=== PATIENT | female | born 1990 | race American Indian/Alaskan Native ===

== ENCOUNTER 2021-01-30 20:30 | Emergency (ER) | payer SELFPAY ==
--- NOTE | 2021-01-30 21:09 | Emergency Department Report ---
ED General Adult HPI - General Chief complaint: Abdominal Pain Stated complaint: DIARRHEA/ABD PAIN PUI?: Yes Time Seen by Provider: 01/30/21 21:06 Source: patient, RN notes reviewed Mode of arrival: Ambulatory Limitations: No Limitations - History of Present Illness Initial comments: The patient was evaluated in the emergency department for symptoms described in the history of present illness. He/she was evaluated in the context of the global COVID-19 pandemic, which necessitated consideration that the patient might be at risk for infection with the virus that causes COVID-19. Institutional protocols and algorithms that pertain to the evaluation of patients at risk for COVID-19 are in a state of rapid change based on i nformation released by regulatory bodies including the CDC and federal and state organizations. These policies and algorithms were followed during the patient's care in the emergency department. Please note that these policies, procedures and recommendations changed on a rapid basis. The patient is a 30-year-old female, who is not vaccinated against COVID-19, who presents to the ER on day 6 with typical Covid symptoms. The patient reports that she went to a green party last week, and this past Monday, approximately 6 days ago, began to have diarrhea, malaise, fatigue, weakness, dizziness, chest tightness. The patient is not sure if she is having a fever. The patient has not had loss of taste or smell. The patient endorses epigastric abdominal pain. The patient denies lower abdominal pain. The patient denies vomiting. The patient reports that anything she drinks "just goes right through me." The patient endorses fatigue and dizziness. The patient has not fallen. Patient reports she is not taken anything at home for her physical discomfort. The patient denies oral contraceptive use, travel, surgery, immobilization, and personal and family history of DVT and pulmonary embolism. -: Gradual, days(s) Location: chest, abdomen Radiation: non-radiation Quality: aching Consistency: constant Improves with: rest Worsens with: movement - Related Data Previous Rx's Medication Instructions Recorded Last Taken Type Acetaminophen [Non-Aspirin Extra 500 mg PO Q6HR PRN #30 tablet 01/30/21 Unknown Rx Strength] Albuterol Sulfate [Proair 90 mcg IH Q4HR PRN #2 aer.pow.ba 01/30/21 Unknown Rx Respiclick] Metoclopramide [Reglan] 10 mg PO QID PRN #30 tablet 01/30/21 Unknown Rx Allergies Allergy/AdvReac Type Severity Reaction Status Date / Time No Known Allergies Allergy Verified 01/30/21 21:47 ED Review of Systems ROS: Stated complaint: DIARRHEA/ABD PAIN Other details as noted in HPI Constitutional: malaise, weakness Eyes: denies: eye discharge ENT: congestion Respiratory: cough, shortness of breath Cardiovascular: chest pain Gastrointestinal: abdominal pain, diarrhea Musculoskeletal: myalgia Neurological: weakness Hematological/Lymphatic: denies: easy bleeding ED Past Medical Hx - Medications Home Medications: Home Medications Medication Instructions Recorded Confirmed Last Taken Type Acetaminophen [Non-Aspirin Extra 500 mg PO Q6HR PRN #30 tablet 01/30/21 Unknown Rx Strength] Albuterol Sulfate [Proair 90 mcg IH Q4HR PRN #2 aer.pow.ba 01/30/21 Unknown Rx Respiclick] Metoclopramide [Reglan] 10 mg PO QID PRN #30 tablet 01/30/21 Unknown Rx ED Physical Exam - General Limitations: No Limitations General appearance: alert, in no apparent distress - Head Head exam: Present: atraumatic, normocephalic - Eye Eye exam: Present: normal appearance, EOMI. Absent: nystagmus - ENT ENT exam: Present: normal exam, normal orophraynx, mucous membranes moist, normal external ear exam - Neck Neck exam: Present: normal inspection, full ROM. Absent: tenderness, meningismus - Respiratory Respiratory exam: Present: normal lung sounds bilaterally, chest wall tenderness. Absent: respiratory distress, wheezes, rales, rhonchi, stridor - Cardiovascular Cardiovascular Exam: Present: normal rhythm, tachycardia, normal heart sounds. Absent: bradycardia, irregular rhythm, systolic murmur, diastolic murmur, rubs, gallop - GI/Abdominal GI/Abdominal exam: Present: soft. Absent: distended, tenderness, guarding, rebound, rigid, pulsatile mass - Extremities Exam Extremities exam: Present: normal inspection, full ROM, other (2+ pulses noted in the bilateral upper and lower extremities. There is no palpable cord. negative Homans sign. Muscular compartments are soft. The pelvis is stable.). Absent: pedal edema, calf tenderness - Back Exam Back exam: Present: normal inspection. Absent: tenderness, CVA tenderness (R), CVA tenderness (L), paraspinal tenderness, vertebral tenderness - Neurological Exam Neurological exam: Present: alert, oriented X3, other (No facial droop. Tongue midline. Extraocular movements intact bilaterally. Facial sensation intact to light touch in V1, V2, V3 distribution bilaterally. 5 and a 5 strength in 4 extremities. Sensation intact to light touch in 4 extremities.). Absent: motor sensory deficit - Psychiatric Psychiatric exam: Present: anxious - Skin Skin exam: Present: warm, dry, intact, normal color. Absent: rash ED Course Vital Signs 01/30/21 01/31/21 23:16 00:39 Temperature 98.2 F Pulse Rate 85 Respiratory 12 Rate Blood Pressure 104/62 [Left] O2 Sat by Pulse 98 Oximetry - Reevaluation(s) Reevaluation #1: 01/30/21 22:52 Differential diagnosis, including but not limited to: COVID-19, dehydration, electrolyte derangement, pulmonary embolism, acute coronary syndrome, GERD, gastritis, hiatal hernia, pericarditis, myocarditis Assessment and plan: 30-year-old female who is not vaccinated against COVID-19, who recently attended a large social gathering last week, and shortly thereafter developed a number of constitutional symptoms, all suggestive of COVID-19. Patient low risk for major adverse cardiac event as per heart score. Presuming troponin and CK unremarkable, myopericarditis very unlikely. CAD very unlikely. She denies DVT and pulmonary embolism risk factors, she is low risk by Wells criteria for pulmonary embolism, and a D-dimer is negative. She walks with a steady gait, and on reevaluation's, appears to be quite engaged with her cellular phone, texting and typing on her cell phone, and does not appear to be in any acute distress. Patient counseled that she is likely experiencing the natural history of COVID- 19. Patient counseled to isolate, quarantine, wash hands with soap and water frequently, thoroughly and often, drink copious fluids, advance diet as tolerated, and obtain outpatient COVID-19 test (this hospital does not have rapid or [id number] Covid testing), and to consider outpatient COVID-19 vaccination when she has convalesced. Currently awaiting ambulatory test, and remainder of laboratory studies. 01/31/21 00:53 Patient afebrile. Patient does not desaturate with trial of ambulation. X-ray suggestive of viral pneumonitis. Patient resting comfortably on chair, playing on cellular phone, and not in any acute distress. ED Medical Decision Making - Lab Data Result diagrams: 01/30/21 22:07 01/30/21 22:07 Lab Results 01/30/21 01/30/21 Range/Units 22:07 22:07 WBC 3.8 L (4.5-11.0) K/mm3 RBC 3.78 (3.65-5.03) M/mm3 Hgb 12.1 (10.1-14.3) gm/dl Hct 34.6 (30.3-42.9) % MCV 92 (79-97) fl MCH 32 (28-32) pg MCHC 35 H (30-34) % RDW 12.9 L (13.2-15.2) % Plt Count 236 (140-440) K/mm3 Lymph % (Auto) 38.1 H (13.4-35.0) % [place] % (Auto) 7.2 (0.0-7.3) % Eos % (Auto) 0.1 (0.0-4.3) % Baso % (Auto) 0.4 (0.0-1.8) % Lymph # (Auto) 1.5 (1.2-5.4) K/mm3 [place] # (Auto) 0.3 (0.0-0.8) K/mm3 Eos # (Auto) 0.0 (0.0-0.4) K/mm3 Baso # (Auto) 0.0 (0.0-0.1) K/mm3 Seg Neutrophils % 54.2 (40.0-70.0) % Seg Neutrophils # 2.1 (1.8-7.7) K/mm3 PT 14.2 (12.2-14.9) Sec. INR 1.04 (0.87-1.13) D-Dimer 181.22 (0-234) ng/mlDDU - EKG Data -: EKG Interpreted by Id EKG shows normal: sinus rhythm Rate: tachycardia - EKG Data When compared to previous EKG there are: previous EKG unavailable 01/30/21 22:52 The EKG is interpreted at 21: 42 Sinus rhythm, tachycardia, rate 101 bpm. Normal axis, normal P wave axis, QTC 4 3 1 ms. Borderline atrial enlargement, abnormal EKG. No STEMI. There is no prior for comparison. - Radiology Data Radiology results: pending, report reviewed, image reviewed CHEST 2 VIEWS INDICATION / CLINICAL INFORMATION: cp weak covid symptoms STUDY TIME: 29 COMPARISON: None available. FINDINGS: SUPPORT DEVICES: None. HEART / MEDIASTINUM: No significant abnormality. LUNGS / PLEURA: Moderate patchy bilateral areas of pneumonitis are seen in the mid lower lung borja, worse in the right base. Minimal left pleural effusion is seen. No pneumothorax. ADDITIONAL FINDINGS: No significant additional findings. Signer Name: Adam Martinez MD Signed: 01/30/2021 11:41 PM Workstation Name: [id number] Critical care attestation.: If time is entered above; I have spent that time in minutes in the direct care of this critically ill patient, excluding procedure time. ED Disposition Clinical Impression: Suspected COVID-19 virus infection, COVID-19 vaccination not done Disposition: HOME / SELF CARE / HOMELESS Is pt being admited?: No Does the pt Need Aspirin: No Condition: Good Instructions: COVID-19, Abdominal Pain (ED) Additional Instructions: As we discussed, the patient most likely has novel coronavirus/COVID. the symptoms of COVID will typically persist 10 to 14 days. There is no cure at this time for COVID. Please make certain to self isolate and self quarantine, follow-up with an outpatient primary care doctor within the next 3 to 5 days, wash hands with soap and water frequently, thoroughly and often, patient may take the prescribed medications as needed and directed. Advance diet and drink plenty of fluids as tolerated. Avoid interactions with the very elderly, very young, and those with chronic medical conditions. Return to the emergency room right away with new pain, worsening pain, migration of pain, projectile vomiting, change in mental status, confusion, inability to tolerate liquid feeds, new, worsened or different symptoms not present on the initial emergency room evaluation. We also recommend that the patient consume foods that are high in potassium, such as avocado, bananas, or potatoes. Please have a primary care doctor contact the medical records department to obtain copies of laboratory studies, radiology studies and follow-up Prescriptions: Acetaminophen [Non-Aspirin Extra Strength] 500 mg PO Q6HR PRN #30 tablet PRN Reason: Pain , Severe (7-10) Albuterol Sulfate [Proair Respiclick] 90 mcg IH Q4HR PRN #2 aer.pow.ba PRN Reason: Wheezing Metoclopramide [Reglan] 10 mg PO QID PRN #30 tablet PRN Reason: Nausea Referrals: YONNY COHN MD [Staff Physician] - 3-5 Days [facility] [Provider Group] - 3-5 Days Forms: Work/School Release Form(ED)
[2021-01-30] MEDS ORDERED: LACTATED RINGERS 1,000 ML IV ONE (21:30)
[2021-01-30] MEDS ORDERED: ACETAMINOPHEN 500 MG TAB PO NR (21:30)
[2021-01-30 22:17] LABS: Basophils % (Auto) 0.4 % (0.0-1.8); Eosinophils % (Auto) 0.1 % (0.0-4.3); Hematocrit 34.6 % (30.3-42.9); Hemoglobin 12.1 gm/dl (10.1-14.3); Lymphocytes # (Auto) 1.5 K/mm3 (1.2-5.4); Lymphocytes % (Auto) 38.1 % (13.4-35.0); Mean Corpuscular HGB Conc 35 % (30-34); Mean Corpuscular Volume 92 fl (79-97); Monocytes # (Auto) 0.3 K/mm3 (0.0-0.8); Monocytes % (Auto) 7.2 % (0.0-7.3); Platelet Count 236 K/mm3 (140-440); Red Blood Count 3.78 M/mm3 (3.65-5.03); Red Cell Distribution Width 12.9 % (13.2-15.2)
[2021-01-30 22:36] LABS: INR 1.04 (0.87-1.13)
[2021-01-30 23:00] LABS: Alanine Aminotransferase 28 units/L (7-56); Albumin 4.7 g/dL (3.9-5); Blood Urea Nitrogen 7 mg/dL (7-17); Calcium 9.1 mg/dL (8.4-10.2); Hemolysis Index 5
[2021-01-30 23:06] LABS: BUN/Creatinine Ratio 10
[2021-01-30] MEDS ORDERED: POTASSIUM CHLORIDE ER 20 MEQ TAB PO ONE (23:13)
--- NOTE | 2021-01-31 00:45 | XRay Report ---
CHEST 2 VIEWS INDICATION / CLINICAL INFORMATION: cp weak covid symptoms STUDY TIME: 29 COMPARISON: None available. FINDINGS: SUPPORT DEVICES: None. HEART / MEDIASTINUM: No significant abnormality. LUNGS / PLEURA: Moderate patchy bilateral areas of pneumonitis are seen in the mid lower lung borja, worse in the right base. Minimal left pleural effusion is seen. No pneumothorax. ADDITIONAL FINDINGS: No significant additional findings. Signer Name: Adam Martinez MD Signed: 01/31/2021 12:41 AM Workstation Name: [id number]
[2021-01-31 01:20] VITALS: BP 102/69
--- NOTE | 2021-02-01 10:40 | Electrocardiograph Report ---
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
== END 2021-01-31 01:20 | disposition home or self-care (01) ==
LOC: ED 20:30
DX: R50.9 Fever, unspecified (principal); Z20.822 Contact with and (suspected) exposure to COVID-19; R79.1 Abnormal coagulation profile; Z79.899 Other long term (current) drug therapy
CPT/HCPCS: 36415; 71046; 80053; 82550; 83735; 84484; 84702; 85025; 85379; 85610; 93005; 96360; 99284; J7120

== ENCOUNTER 2021-05-12 22:03 | Emergency (ER) | payer SELFPAY ==
[2021-05-12 22:07] VITALS: BP 117/76
[2021-05-12 23:05] LABS: Basophils % (Auto) 0.4 % (0.0-1.8); Eosinophils # (Auto) 0.2 K/mm3 (0.0-0.4); Eosinophils % (Auto) 1.6 % (0.0-4.3); Hemoglobin 12.2 gm/dl (10.1-14.3); Lymphocytes # (Auto) 3.1 K/mm3 (1.2-5.4); Lymphocytes % (Auto) 28.2 % (13.4-35.0); Mean Corpuscular HGB Conc 33 % (30-34); Mean Corpuscular Volume 92 fl (79-97); Monocytes # (Auto) 0.5 K/mm3 (0.0-0.8); Platelet Count 408 K/mm3 (140-440); Red Blood Count 4.02 M/mm3 (3.65-5.03); Red Cell Distribution Width 13.1 % (13.2-15.2)
[2021-05-12 23:20] LABS: Bacteria,Urine 1+ /HPF (Negative); Bilirubin,Urine NEG (Negative); Blood,Urine NEG (Negative); Color,Urine Straw (Yellow); Mucus,Urine FEW /HPF; Protein,Urine <15 mg/dL mg/dL (Negative); Urobilinogen,Urine < 2.0 mg/dL (<2.0)
[2021-05-12 23:25] LABS: Alanine Aminotransferase 17 units/L (7-56); Albumin 4.6 g/dL (3.9-5); Blood Urea Nitrogen 12 mg/dL (7-17); Calcium 9.5 mg/dL (8.4-10.2); Hemolysis Index 2
[2021-05-12 23:38] LABS: BUN/Creatinine Ratio 20
[2021-05-13] MEDS ORDERED: FAMOTIDINE 20 MG TAB PO ONE (02:03)
--- NOTE | 2021-05-13 02:03 | Emergency Department Report ---
HPI - General Chief Complaint: Abdominal Pain Time Seen by Provider: 05/13/21 01:29 - HPI HPI: 30-year-old -[place] female presents to the emergency department with a complaint of abdominal pain, worst in the epigastrium and upper quadrants. This has been going on for the past 2 to 3 weeks, since just before . At that time the patient was having some dark stools and was seen by a physician and told that she needs to follow-up outpatient with GI. The patient admits that she has not yet seen GI for the symptoms, but the dark stool has resolved. She continues to have intermittent abdominal pain that worsens after eating. Patient did have a recent positive home test as she missed her last menstrual cycle. With this she is G4, P1 with 2 previous miscarriages. She has not taken anything for symptoms prior to presentation today. She denies any pelvic pain or cramping, vaginal bleeding, dysuria, nausea or vomiting, diarrhea, constipation. No recent travel or sick contacts at home. ED Past Medical Hx - Past Medical History Previous Medical History?: No - Surgical History Past Surgical History?: No - Medications Home Medications: Home Medications Medication Instructions Recorded Confirmed Last Taken Type Acetaminophen [Non-Aspirin Extra 500 mg PO Q6HR PRN #30 tablet 01/30/21 Unknown Rx Strength] Albuterol Sulfate [Proair 90 mcg IH Q4HR PRN #2 aer.pow.ba 01/30/21 Unknown Rx Respiclick] Metoclopramide [Reglan] 10 mg PO QID PRN #30 tablet 01/30/21 Unknown Rx Famotidine [Pepcid] 20 mg PO BID #20 tablet 05/13/21 Unknown Rx Vit-Fe Fumar-FA [ 1 tab PO QDAY #30 tablet 05/13/21 Unknown Rx Vitamin] ED Review of Systems ROS: Stated complaint: ABDOMINAL PAIN Other details as noted in HPI Comment: All other systems reviewed and negative Constitutional: denies: chills, fever Eyes: denies: eye pain, vision change ENT: denies: ear pain, throat pain Respiratory: denies: cough, shortness of breath Cardiovascular: denies: chest pain, palpitations Gastrointestinal: abdominal pain. denies: vomiting Genitourinary: denies: dysuria, discharge Musculoskeletal: denies: back pain, arthralgia Skin: denies: rash, lesions Neurological: denies: headache, weakness Physical Exam - Physical Exam Vital Signs: Vital Signs 05/12/21 22:06 Temperature 98.0 F Pulse Rate 95 H Respiratory 18 Rate Blood Pressure 117/76 O2 Sat by Pulse 100 Oximetry Physical Exam: GENERAL: The patient is well-developed well-nourished. HENT: Normocephalic. Atraumatic. Patient has moist mucous membranes. EYES: Extraocular motions are intact. NECK: Supple. Trachea is midline. CHEST/LUNGS: Clear to auscultation. There is no respiratory distress noted. HEART/CARDIOVASCULAR: Regular. There is no tachycardia. There is no murmur. ABDOMEN: Abdomen is soft. There is some epigastric abdominal tenderness to palpation. No guarding. Patient has normal bowel sounds. There is no abdominal distention. SKIN: Skin is warm and dry. NEURO: The patient is awake, alert, and oriented. The patient is cooperative. Normal speech. MUSCULOSKELETAL: There is no tenderness or deformity. There is no limitation range of motion. ED Course Vital Signs 05/12/21 22:06 Temperature 98.0 F Pulse Rate 95 H Respiratory 18 Rate Blood Pressure 117/76 O2 Sat by Pulse 100 Oximetry ED Medical Decision Making - Lab Data Result diagrams: 05/12/21 22:32 05/12/21 22:32 Lab Results 05/12/21 05/12/21 05/12/21 Range/Units 22:32 22:32 22:32 WBC 10.9 (4.5-11.0) K/mm3 RBC 4.02 (3.65-5.03) M/mm3 Hgb 12.2 (10.1-14.3) gm/dl Hct 37.0 (30.3-42.9) % MCV 92 (79-97) fl MCH 30 (28-32) pg MCHC 33 (30-34) % RDW 13.1 L (13.2-15.2) % Plt Count 408 (140-440) K/mm3 Lymph % (Auto) 28.2 (13.4-35.0) % [place] % (Auto) 5.0 (0.0-7.3) % Eos % (Auto) 1.6 (0.0-4.3) % Baso % (Auto) 0.4 (0.0-1.8) % Lymph # (Auto) 3.1 (1.2-5.4) K/mm3 [place] # (Auto) 0.5 (0.0-0.8) K/mm3 Eos # (Auto) 0.2 (0.0-0.4) K/mm3 Baso # (Auto) 0.0 (0.0-0.1) K/mm3 Seg Neutrophils % 64.8 (40.0-70.0) % Seg Neutrophils # 7.0 (1.8-7.7) K/mm3 Sodium 140 (137-145) mmol/L Potassium 4.2 (3.6-5.0) mmol/L Chloride 103.4 (98-107) mmol/L Carbon Dioxide 25 (22-30) mmol/L Anion Gap 16 mmol/L BUN 12 (7-17) mg/dL Creatinine 0.6 (0.6-1.2) mg/dL Estimated GFR > 60 ml/min BUN/Creatinine Ratio 20 % Glucose 92 (65-100) mg/dL Calcium 9.5 (8.4-10.2) mg/dL Total Bilirubin 0.60 (0.1-1.2) mg/dL AST 18 (5-40) units/L ALT 17 (7-56) units/L Alkaline Phosphatase 46 (35-129) units/L Total Protein 7.3 (6.3-8.2) g/dL Albumin 4.6 (3.9-5) g/dL Albumin/Globulin Ratio 1.7 % Lipase (13-60) units/L HCG, Qual Positive (Negative) HCG, Quant (0-4) mIU/mL Urine Color (Yellow) Urine Turbidity (Clear) Urine pH (5.0-7.0) Ur Specific [place] (1.003-1.030) Urine Protein (Negative) mg/dL Urine Glucose (UA) (Negative) mg/dL Urine Ketones (Negative) mg/dL Urine Blood (Negative) Urine Nitrite (Negative) Urine Bilirubin (Negative) Urine Urobilinogen (<2.0) mg/dL Ur Leukocyte Esterase (Negative) Urine WBC (Auto) (0.0-6.0) /HPF Urine RBC (Auto) (0.0-6.0) /HPF U Epithel Cells (Auto) (0-13.0) /HPF Urine Bacteria (Auto) (Negative) /HPF Urine Mucus /HPF 01/05/22 01/06/22 01/06/22 Range/Units Unknown 01:30 Unknown WBC (4.5-11.0) K/mm3 RBC (3.65-5.03) M/mm3 Hgb (10.1-14.3) gm/dl Hct (30.3-42.9) % MCV (79-97) fl MCH (28-32) pg MCHC (30-34) % RDW (13.2-15.2) % Plt Count (140-440) K/mm3 Lymph % (Auto) (13.4-35.0) % [place] % (Auto) (0.0-7.3) % Eos % (Auto) (0.0-4.3) % Baso % (Auto) (0.0-1.8) % Lymph # (Auto) (1.2-5.4) K/mm3 [place] # (Auto) (0.0-0.8) K/mm3 Eos # (Auto) (0.0-0.4) K/mm3 Baso # (Auto) (0.0-0.1) K/mm3 Seg Neutrophils % (40.0-70.0) % Seg Neutrophils # (1.8-7.7) K/mm3 Sodium (137-145) mmol/L Potassium (3.6-5.0) mmol/L Chloride (98-107) mmol/L Carbon Dioxide (22-30) mmol/L Anion Gap mmol/L BUN (7-17) mg/dL Creatinine (0.6-1.2) mg/dL Estimated GFR ml/min BUN/Creatinine Ratio % Glucose (65-100) mg/dL Calcium (8.4-10.2) mg/dL Total Bilirubin (0.1-1.2) mg/dL AST (5-40) units/L ALT (7-56) units/L Alkaline Phosphatase (35-129) units/L Total Protein (6.3-8.2) g/dL Albumin (3.9-5) g/dL Albumin/Globulin Ratio % Lipase 40 (13-60) units/L HCG, Qual (Negative) HCG, Quant 61421 H (0-4) mIU/mL Urine Color Straw (Yellow) Urine Turbidity Clear (Clear) Urine pH 6.0 (5.0-7.0) Ur Specific [place] 1.010 (1.003-1.030) Urine Protein <15 mg/dl (Negative) mg/dL Urine Glucose (UA) Neg (Negative) mg/dL Urine Ketones Neg (Negative) mg/dL Urine Blood Neg (Negative) Urine Nitrite Neg (Negative) Urine Bilirubin Neg (Negative) Urine Urobilinogen < 2.0 (<2.0) mg/dL Ur Leukocyte Esterase Neg (Negative) Urine WBC (Auto) 1.0 (0.0-6.0) /HPF Urine RBC (Auto) 1.0 (0.0-6.0) /HPF U Epithel Cells (Auto) 2.0 (0-13.0) /HPF Urine Bacteria (Auto) 1+ (Negative) /HPF Urine Mucus Few /HPF - Radiology Data Radiology results: report reviewed ULTRASOUND OBSTETRIC INDICATION / CLINICAL INFORMATION: , abd pain. Clinical Gestational Age (GA) in weeks, days: Approximately 7 weeks TECHNIQUE: Transabdominal. Transvaginal COMPARISON: None available. FINDINGS: GESTATIONAL SAC: Well-defined oval shape and intrauterine in location. YOLK SAC: No significant abnormality. EMBRYO/FETUS: No significant abnormality. - Garibaldi-Rump Length = 0.42 cm = 6 weeks, 1 days - Heart Rate, beats per minute (if present) = 144 ADNEXA: The right ovary is well-visualized and has normal appearance. Normal Doppler flow noted within the right ovary. Left ovary contains a 7 mm corpus luteal cyst. Normal Doppler flow noted within the left ovary. FREE FLUID: None. ADDITIONAL FINDINGS: None. IMPRESSION: 1. Single, living intrauterine with estimated sonographic age of 6 weeks, 2 days. - Medical Decision Making This patient presents to the emergency department with a complaint of a few weeks of abdominal pain that appears to be mostly in the upper quadrants and worsens after eating. Patient also recently found out that she was from a home test. However she denies any pelvic pain, vaginal bleeding. On examination there is some reproducible epigastric or upper abdominal tenderness to palpation but no guarding. The abdomen is soft, nondistended and nontoxic in appearance. Patient's labs are mostly unremarkable including CBC, metabolic panel, lipase and urinalysis. The patient is with a beta-hCG of about 21,000. She had a pelvic ultrasound that shows a live intrauterine at about 6 weeks. As the patient is , we are slightly more limited in our ability to evaluate the abdominal discomfort. She does not have any right lower quadrant abdominal pain concerning for appendicitis. She does not have any significant right upper quadrant abdominal pain concerning for cholecystitis. And the way that she describes the pain, and the location of the pain, sounds more c onsistent with GERD and/or gastritis. Patient was given a dose of Pepcid here. Vital signs reassuring throughout her ED course including being afebrile. She will be discharged home to follow-up with primary care, gastroenterology and ELECTRICAL HARDWARE ENGINEER. She has been given a prescription for Pepcid. We discussed certain foods to avoid. She will return to the emergency department with any worsening of her symptoms or with any acute distress. Critical Care Time: No Critical care attestation.: If time is entered above; I have spent that time in minutes in the direct care of this critically ill patient, excluding procedure time. ED Disposition Clinical Impression: Qualifiers: Weeks of gestation: less than 8 weeks Qualified Code(s): Z3A.01 - Less than 8 weeks gestation of Abdominal pain Qualifiers: Abdominal location: unspecified location Qualified Code(s): R10.9 - Unspecified abdominal pain Gastritis Qualifiers: Gastritis type: unspecified gastritis Chronicity: unspecified Gastritis bleeding: without bleeding Qualified Code(s): K29.70 - Gastritis, unspecified, without bleeding Disposition: 01 HOME / SELF CARE / HOMELESS Is pt being admited?: No Condition: Stable Instructions: Abdominal Pain, Adult, Gastritis, Adult, First Trimester of , Abdominal Pain (ED) Additional Instructions: Please follow-up with a primary care physician in the next few days. I have given you a referral for a local primary care physician, Dr. Clements, and a primary care clinic, [facility]. Please follow-up with an ELECTRICAL HARDWARE ENGINEER for care in regards to your . Please try to avoid any alcohol, spicy foods, acidic foods, excessive caffeine. Do not eat and then immediately lay down or eat while laying down. Return to the emergency department with any worsening of your symptoms, new or concerning symptoms not addressed during this current emergency department visit, or with any acute distress. Prescriptions: Famotidine [Pepcid] 20 mg PO BID #20 tablet Vit-Fe Fumar-FA [ Vitamin] 1 tab PO QDAY #30 tablet Referrals: YONNY CLEMENTS MD [Staff Physician] - 3-5 Days [facility] [Provider Group] - 3-5 Days Time of Disposition: 03:37
--- NOTE | 2021-05-13 03:05 | Ultrasound Report ---
ULTRASOUND OBSTETRIC INDICATION / CLINICAL INFORMATION: , abd pain. Clinical Gestational Age (GA) in weeks, days: Approximately 7 weeks TECHNIQUE: Transabdominal. Transvaginal COMPARISON: None available. FINDINGS: GESTATIONAL SAC: Well-defined oval shape and intrauterine in location. YOLK SAC: No significant abnormality. EMBRYO/FETUS: No significant abnormality. - Mylo-Rump Length = 0.42 cm = 6 weeks, 1 days - Heart Rate, beats per minute (if present) = 144 ADNEXA: The right ovary is well-visualized and has normal appearance. Normal Doppler flow noted withi n the right ovary. Left ovary contains a 7 mm corpus luteal cyst. Normal Doppler flow noted within th e left ovary. FREE FLUID: None. ADDITIONAL FINDINGS: None. IMPRESSION: 1. Single, living intrauterine with estimated sonographic age of 6 weeks, 2 days. Signer Name: Teena Chiang MD Signed: 05/13/2021 3:01 AM Workstation Name: [id number]
--- NOTE | 2021-05-13 03:05 | Ultrasound Report ---
ULTRASOUND OBSTETRIC INDICATION / CLINICAL INFORMATION: , abd pain. Clinical Gestational Age (GA) in weeks, days: Approximately 7 weeks TECHNIQUE: Transabdominal. Transvaginal COMPARISON: None available. FINDINGS: GESTATIONAL SAC: Well-defined oval shape and intrauterine in location. YOLK SAC: No significant abnormality. EMBRYO/FETUS: No significant abnormality. - [place] Length = 0.42 cm = 6 weeks, 1 days - Heart Rate, beats per minute (if present) = 144 ADNEXA: The right ovary is well-visualized and has normal appearance. Normal Doppler flow noted withi n the right ovary. Left ovary contains a 7 mm corpus luteal cyst. Normal Doppler flow noted within th e left ovary. FREE FLUID: None. ADDITIONAL FINDINGS: None. IMPRESSION: 1. Single, living intrauterine with estimated sonographic age of 6 weeks, 2 days. Signer Name: Teena Chiang MD Signed: 05/13/2021 3:01 AM Workstation Name: [id number]
== END 2021-05-13 04:01 | disposition home or self-care (01) ==
LOC: ED 22:03
DX: O99.611 Diseases of the digestive system complicating pregnancy, first trimester (principal); K29.70 Gastritis, unspecified, without bleeding; Z3A.08 8 weeks gestation of pregnancy
CPT/HCPCS: 36415; 76801; 76817; 80053; 81001; 83690; 84702; 84703; 85025; 99284

== ENCOUNTER 2021-07-18 23:15 | Emergency (ER) | payer SELFPAY ==
[2021-07-18 23:44] VITALS: BP 126/66
[2021-07-19 00:56] LABS: Bilirubin,Urine NEG (Negative); Blood,Urine NEG (Negative); Color,Urine Colorless (Yellow); Mucus,Urine FEW /HPF; Protein,Urine <15 mg/dL mg/dL (Negative); RBC,Urine < 1.0 /HPF (0.0-6.0); Urobilinogen,Urine < 2.0 mg/dL (<2.0)
[2021-07-19 01:05] LABS: WBC,Urine < 1.0 /HPF (0.0-6.0)
[2021-07-19 01:22] LABS: Mean Corpuscular HGB Conc 33 % (30-34); Mean Corpuscular Volume 94 fl (79-97); Platelet Count 342 K/mm3 (140-440); Red Blood Count 3.83 M/mm3 (3.65-5.03); Red Cell Distribution Width 13.7 % (13.2-15.2)
--- NOTE | 2021-07-19 01:24 | Ultrasound Report ---
ULTRASOUND OBSTETRIC COMPLETE INDICATION / CLINICAL INFORMATION: Leaking amniotic fluid, pain. Clinical Gestational Age (GA) in weeks.days: 15, 3 TECHNIQUE: Transabdominal. COMPARISON: None available. FINDINGS: NUMBER: Single PRESENTATION: cephalic PLACENTA: Fundal and free of the os. MATERNAL ADNEXA: No significant abnormality. AMNIOTIC FLUID VOLUME: normal ANATOMY: Not performed. MEASUREMENTS: - Biparietal Diameter = 3.1 cm = 15.5 weeks.days - Head Circumference = 11.2 cm = 15.3 weeks.days - Abdominal Circumference = 9.9 cm = 15.6 weeks.days - Femur Length = 1.9 cm = 15.4 weeks.days - Estimated Weight (in grams, if calculated): Not calculated. - Heart Rate (beats per minute): 151 ADDITIONAL FINDINGS: Cervix closed measuring 4.3 cm. AVERAGE ULTRASOUND AGE (AUA) in weeks.days = 15.5 IMPRESSION: 1. Single intrauterine with AUA of 15.5 weeks.days 2. Cervix closed with normal-appearing amniotic fluid. Signer Name: Nick Crespo MD Signed: 07/19/2021 1:19 AM Workstation Name: [id number]
[2021-07-19 02:04] LABS: Basophils % (Auto) 0.3 % (0.0-1.8); Eosinophils # (Auto) 0.1 K/mm3 (0.0-0.4); Eosinophils % (Auto) 1.2 % (0.0-4.3); Lymphocytes # (Auto) 2.5 K/mm3 (1.2-5.4); Lymphocytes % (Auto) 24.1 % (13.4-35.0); Monocytes # (Auto) 0.5 K/mm3 (0.0-0.8); Monocytes % (Auto) 4.7 % (0.0-7.3)
[2021-07-19 02:10] LABS: Alanine Aminotransferase 11 units/L (7-56); Albumin 3.9 g/dL (3.9-5); Blood Urea Nitrogen 6 mg/dL (7-17); Calcium 8.8 mg/dL (8.4-10.2); Hemolysis Index 13
[2021-07-19 02:12] LABS: BUN/Creatinine Ratio 12
--- NOTE | 2021-07-19 03:13 | Emergency Department Report ---
ED Female HPI - General Chief complaint: OB/Uterine Contractions Stated complaint: -NEED ULTRASOUND Source: patient Mode of arrival: Ambulatory Limitations: No Limitations - History of Present Illness Initial comments: Patient is a A2 31-year-old -I[place] female who is approximately 15 weeks gestation presents to the ED with complaint of vaginal discharge that she describes as the persistently for about 12 hours, and suspects that she may have a leaking amniotic fluid. Patient states that she contacted her [facility]NALYST physician who advised her to come to the ED for evaluation. Patient denies abdominal pain, vaginal bleeding, dysuria, urinary frequency and urgency, chest pain, shortness of breath, fever, chills, cough, sore throat, chest pain or shortness of breath, low back pain or diarrhea. MD Complaint: vaginal discharge (suspect her amniotic fluid is leaking), other (Patient is 15 weeks gestation) -: Sudden, hour(s) (12) Radiation: non-radiating Severity scale (0 -10): 0 Quality: dull Improves with: none Worsens with: none Are you Now?: Yes (15 weeks gestation) Associated Symptoms: denies other symptoms, other (Suspected amniotic fluid leak). denies: vaginal discharge, vaginal bleeding, abdominal pain, nausea/vomiting, fever/chills, headaches, loss of appetite, dysuria, hematuria, rash, seizure, shortness of breath, syncope, weakness - Related Data Sexually active: Yes : 4 Para: 1 A: 2 Previous Rx's Medication Instructions Recorded Last Taken Type Acetaminophen [Non-Aspirin Extra 500 mg PO Q6HR PRN #30 tablet 01/30/21 Unknown Rx Strength] Albuterol Sulfate [Proair 90 mcg IH Q4HR PRN #2 aer.pow.ba 01/30/21 Unknown Rx Respiclick] Metoclopramide [Reglan] 10 mg PO QID PRN #30 tablet 01/30/21 Unknown Rx Famotidine [Pepcid] 20 mg PO BID #20 tablet 05/13/21 Unknown Rx Vit-Fe Fumar-FA [ 1 tab PO QDAY #30 tablet 05/13/21 Unknown Rx Vitamin] Allergies Allergy/AdvReac Type Severity Reaction Status Date / Time No Known Allergies Allergy Verified 01/30/21 21:47 ED Review of Systems ROS: Stated complaint: -NEED ULTRASOUND Other details as noted in HPI Constitutional: denies: chills, fever Eyes: denies: eye pain, eye discharge, vision change ENT: denies: ear pain, throat pain Respiratory: denies: cough, shortness of breath, wheezing Cardiovascular: denies: chest pain, palpitations Endocrine: no symptoms reported Gastrointestinal: denies: abdominal pain, nausea, vomiting, diarrhea Genitourinary: denies: urgency, dysuria, discharge Musculoskeletal: denies: back pain, joint swelling, arthralgia Skin: denies: rash, lesions Neurological: denies: headache, weakness, paresthesias Psychiatric: denies: anxiety, depression Hematological/Lymphatic: denies: easy bleeding, easy bruising ED Past Medical Hx - Past Medical History Previous Medical History?: No - Surgical History Past Surgical History?: Yes Additional Surgical History: Breast augmentation - Medications Home Medications: Home Medications Medication Instructions Recorded Confirmed Last Taken Type Acetaminophen [Non-Aspirin Extra 500 mg PO Q6HR PRN #30 tablet 01/30/21 Unknown Rx Strength] Albuterol Sulfate [Proair 90 mcg IH Q4HR PRN #2 aer.pow.ba 01/30/21 Unknown Rx Respiclick] Metoclopramide [Reglan] 10 mg PO QID PRN #30 tablet 01/30/21 Unknown Rx Famotidine [Pepcid] 20 mg PO BID #20 tablet 05/13/21 Unknown Rx Vit-Fe Fumar-FA [ 1 tab PO QDAY #30 tablet 05/13/21 Unknown Rx Vitamin] ED Physical Exam - General Limitations: No Limitations General appearance: alert, in no apparent distress - Head Head exam: Present: atraumatic, normocephalic, normal inspection - Eye Eye exam: Present: normal appearance, PERRL, EOMI Pupils: Present: normal accommodation - ENT ENT exam: Present: normal exam, normal orophraynx, mucous membranes moist, TM's normal bilaterally, normal external ear exam - Neck Neck exam: Present: normal inspection, full ROM. Absent: tenderness - Respiratory Respiratory exam: Present: normal lung sounds bilaterally. Absent: respiratory distress, wheezes, rales, rhonchi, chest wall tenderness, accessory muscle use - Cardiovascular Cardiovascular Exam: Present: normal rhythm, tachycardia, normal heart sounds. Absent: systolic murmur, diastolic murmur, rubs, gallop - GI/Abdominal GI/Abdominal exam: Present: soft, normal bowel sounds, other (Gravid abdomen). Absent: tenderness, guarding, rebound, rigid, hyperactive bowel sounds, hypoactive bowel sounds, organomegaly, mass - Bi-manual exam: Present: other (Pelvic exam deferred at this time) - Extremities Exam Extremities exam: Present: normal inspection, full ROM, normal capillary refill. Absent: tenderness - Back Exam Back exam: Present: normal inspection, full ROM. Absent: tenderness, CVA tend erness (R), CVA tenderness (L), muscle spasm, paraspinal tenderness, vertebral tenderness - Neurological Exam Neurological exam: Present: alert, oriented X3, CN II-XII intact, normal gait, reflexes normal - Psychiatric Psychiatric exam: Present: normal affect, normal mood - Skin Skin exam: Present: warm, dry, intact, normal color. Absent: rash ED Course Vital Signs 07/18/21 23:40 Temperature 98.4 F Pulse Rate 104 H Respiratory 18 Rate Blood Pressure 126/66 O2 Sat by Pulse 100 Oximetry ED Medical Decision Making - Lab Data Result diagrams: 07/19/21 00:50 07/19/21 00:50 - Radiology Data Radiology results: report reviewed, image reviewed [facility] [address] [place] [address] Ultrasound Report Signed Patient: KAT MONTALVO MR#: [id number] : 1990 Acct:[id number] Age/Sex: 31 / F ADM Date: 07/18/21 Loc: ED Attending Dr: Ordering Physician: RUSSELL DE LA CRUZ Date of Service: 07/19/21 Procedure(s): US OB >= 14 weeks Fetus Accession Number(s): [id number] cc: RUSSELL DE LA CRUZ ULTRASOUND OBSTETRIC COMPLETE INDICATION / CLINICAL INFORMATION: Leaking amniotic fluid, pain. Clinical Gestational Age (GA) in weeks.days: 15, 3 TECHNIQUE: Transabdominal. COMPARISON: None available. FINDINGS: NUMBER: Single PRESENTATION: cephalic PLACENTA: Fundal and free of the os. MATERNAL ADNEXA: No significant abnormality. AMNIOTIC FLUID VOLUME: normal ANATOMY: Not performed. MEASUREMENTS: - Biparietal Diameter = 3.1 cm = 15.5 weeks.days - Head Circumference = 11.2 cm = 15.3 weeks.days - Abdominal Circumference = 9.9 cm = 15.6 weeks.days - Femur Length = 1.9 cm = 15.4 weeks.days - Estimated Weight (in grams, if calculated): Not calculated. - Heart Rate (beats per minute): 151 ADDITIONAL FINDINGS: Cervix closed measuring 4.3 cm. AVERAGE ULTRASOUND AGE (AUA) in weeks.days = 15.5 IMPRESSION: 1. Single intrauterine with AUA of 15.5 weeks.days 2. Cervix closed with normal-appearing amniotic fluid. Signer Name: Nick Crespo MD Signed: 07/19/2021 1:19 AM Workstation Name: [id number] Transcribed By: ES Dictated By: Nick Crespo MD Electronically Authenticated By: Nick Crespo MD Signed Date/Time: 07/19/21118 DD/ 4 TD/TT: Print - Medical Decision Making This is a A2 31-year-old -I[place] female who is approximately 15 weeks gestation presents to the ED with complaint of vaginal discharge that she describes as the persistently for about 12 hours, and suspects that she may have a leaking amniotic fluid. Patient states that she contacted her [facility]ISS[facility] ANALYST ph ysician who advised her to come to the ED for evaluation. In the ED, patient is alert and oriented x3 and is not in any distress. Lab test results were reviewed and are all nonactionable. Pelvic ultrasound showed a single intrauterine with AUA of 15.5 weeks.days with a ventricular rate of 151 bpm and the cervix closed with normal-appearing amniotic fluid. Patient was therefore discharged home and advised to maintain a complete pelvic rest and to follow-up with COMMISSIONS ANALYST physician in 3 to 5 days for reevaluation or return to the ED immediately if symptoms get worse. - Differential Diagnosis PPROM; UTI; Ovarian cyst; Critical care attestation.: If time is entered above; I have spent that time in minutes in the direct care of this critically ill patient, excluding procedure time. ED Disposition Clinical Impression: Amniotic fluid leaking, Vaginal discharge during in second trimester Disposition: HOME / SELF CARE / HOMELESS Is pt being admited?: No Does the pt Need Aspirin: No Condition: Stable Instructions: Premature Rupture and Premature Rupture of Membranes, [id number] Additional Instructions: All lab test results were reviewed and are all nonactionable. Pelvic ultrasound showed a single intrauterine with AUA of 15.5 weeks.days with heart rate of 151 bpm; and cervix which was closed with normal-appearing amniotic fluid. Therefore maintain a complete pelvic rest and to follow-up with your COMMISSIONS ANALYST physician in 3 to 5 days for reevaluation or return to the ED immediately if symptoms get worse. Referrals: MILTON MOMIN MD [Staff Physician] - 3-5 Days Time of Disposition: 03:12 Print Language: IRISH
== END 2021-07-19 07:24 | disposition home or self-care (01) ==
LOC: ED 23:15
DX: O88.119 Amniotic fluid embolism in pregnancy, unspecified trimester (principal); Z3A.15 15 weeks gestation of pregnancy
CPT/HCPCS: 36415; 76805; 80053; 81001; 84702; 85025; 99284

== ENCOUNTER 2022-01-12 13:27 | Inpatient (IN) | payer SELFPAY ==
[2022-01-12] MEDS ORDERED: LACTATED RINGERS 1,000 ML ONE (14:00)
[2022-01-12] MEDS ORDERED: OXYTOCIN DRIP 30,000 MILLIUNITS/500 ML BAG IV ONE (14:00)
[2022-01-12] MEDS ORDERED: LIDOCAINE (2%) 20 MG/1 ML VIAL 20 ML MDV INFILTRATI ONE ×2 (14:01→14:42)
--- NOTE | 2022-01-12 14:28 | History and Physical Report ---
History of Present Illness Date of examination: 01/12/22 Date of admission: January 12, 2022 Chief complaint: Contractions History of present illness: 31-year-old -0-3-1 at 40+5 weeks who presents in active labor with advanced cervical dilatation. The patient denies leakage of fluid. The patient was 9 cm at presentation. She initiated care in the pressure miss her . Her course has been complicated by an elevated 1 hour Glucola, the 3-hour GTT was normal. Patient is GBS negative Past History Past Medical History: no pertinent history Past Surgical History: other (Breast augmentation) Social history: - Obstetrical History Expected Date of Delivery: 01/07/22 Actual Gestation: 40 Week(s) 5 Day(s) : 5 Para: 1 Hx # Term Pregnancies: 1 Number of Pregnancies: 0 Spontaneous Abortions: 3 Induced : 0 Number of Living Children: 1 Medications and Allergies Allergies Allergy/AdvReac Type Severity Reaction Status Date / Time No Known Allergies Allergy Verified 01/30/21 21:47 Home Medications Medication Instructions Recorded Confirmed Last Taken Type Acetaminophen [Non-Aspirin Extra 500 mg PO Q6HR PRN #30 tablet 01/30/21 Unknown Rx Strength] Albuterol Sulfate [Proair 90 mcg IH Q4HR PRN #2 aer.pow.ba 01/30/21 Unknown Rx Respiclick] Metoclopramide [Reglan] 10 mg PO QID PRN #30 tablet 01/30/21 Unknown Rx Famotidine [Pepcid] 20 mg PO BID #20 tablet 05/13/21 Unknown Rx Vit-Fe Fumar-FA [ 1 tab PO QDAY #30 tablet 05/13/21 Unknown Rx Vitamin] Review of Systems All systems: negative Genitourinary: pelvic pain, contractions - Vital Signs Vital signs: Vital Signs Pulse BP 100 H 122/63 01/12/22 13:42 01/12/22 13:42 Temp Pulse Resp BP Pulse Ox 95 H 114/68 100 01/12/22 14:24 01/12/22 13:56 01/12/22 14:24 - Physical Exam Breasts: Positive: deferred Cardiovascular: Regular rate Lungs: Positive: Clear to auscultation Abdomen: Positive: normal appearance - Obstetrical Cervical Dilatation: 9 station: -3 Results All other labs normal. Assessment and Plan - Patient Problems (1) Active labor at term Current Visit: Yes Status: Acute Plan to address problem: Admit to labor and delivery
[2022-01-12] MEDS ORDERED: ePHEDrine SULFATE 50 MG/1 ML INJ IV PRN (14:42)
[2022-01-12] MEDS ORDERED: METHYLERGONOVINE MALEATE 0.2 MG/ML VIAL IM PRN (14:42)
[2022-01-12] MEDS ORDERED: miSOPROStol 200 MCG TAB PR PRN (14:42)
[2022-01-12] MEDS ORDERED: MINERAL OIL 30 ML ORAL LIQD PO PRN (14:42)
[2022-01-12] MEDS ORDERED: LOPERAMIDE 2 MG CAP PO PRN (14:42)
[2022-01-12] MEDS ORDERED: OXYTOCIN 10 UNIT/1 ML INJ IM PRN (14:42)
[2022-01-12] MEDS ORDERED: CARBOPROST TROMETHAMINE 250 MCG/1 ML INJ IM PRN (14:42)
[2022-01-12] MEDS ORDERED: TERBUTALINE 1 MG/1 ML INJ SUB-Q PRN (14:42)
[2022-01-12] MEDS ORDERED: ONDANSETRON 4 MG/2 ML INJ IV PRN ×2 (14:43→16:32)
[2022-01-12] MEDS ORDERED: fentaNYL 100 MCG/2 ML INJ IV PRN (14:43)
[2022-01-12] MEDS ORDERED: ACETAMINOPHEN 325 MG TAB PO PRN ×2 (14:43→16:32)
[2022-01-12] MEDS ORDERED: BUTORPHANOL 2 MG/1 ML INJ IV PRN (14:43)
[2022-01-12] MEDS ORDERED: LACTATED RINGERS 1,000 ML IV SCH (14:45)
[2022-01-12 14:52] LABS: Hematocrit 40.7 % (30.3-42.9); Hemoglobin 13.5 gm/dl (10.1-14.3); Mean Corpuscular HGB Conc 33 % (30-34); Mean Corpuscular Volume 92 fl (79-97); Platelet Count 321 K/mm3 (140-440); Red Blood Count 4.43 M/mm3 (3.65-5.03); Red Cell Distribution Width 14.2 % (13.2-15.2)
[2022-01-12] MEDS ORDERED: OXYTOCIN DRIP 30 UNITS/500 ML BAG IV SCH (15:00)
--- NOTE | 2022-01-12 16:31 | Procedure Note ---
OB Delivery Note - Delivery Date of Delivery: 01/12/22 Surgeon: MILTON MOMIN Estimated blood loss: 200cc - Vaginal Delivery presentation: vertex Delivery position: OP Intrapartum events: meconium Delivery monitor: external FHT, external uterine Route of delivery: Delivery placenta: spontaneous Delivery cord: 3 umbilical vessels Episiotomy: none Delivery laceration: 2nd degree Delivery repair: vicryl Anesthesia: local - Infant A at 1 minute: 8 at 5 minutes: 9 Gender: Female (Weight 8 pounds 4 ounces)
[2022-01-12] MEDS ORDERED: diphenhydrAMINE 25 MG CAP PO PRN (16:32)
[2022-01-12] MEDS ORDERED: LANOLIN/ZINC/DIMETHICONE (LANSINOH) 7 GM TP PRN (16:32)
[2022-01-12] MEDS ORDERED: HYDROcodone/ACETAMINOPHEN 5-325 MG TAB PO PRN (16:32)
[2022-01-12] MEDS ORDERED: MAGNESIUM HYDROXIDE (MOM) ORAL LIQD UDC PO PRN (16:32)
[2022-01-12] MEDS ORDERED: WITCH HAZEL/ GLYCERIN PAD TP PRN (16:32)
[2022-01-12] MEDS ORDERED: PROMETHAZINE 25 MG TAB PO PRN (16:32)
[2022-01-12] MEDS ORDERED: PROMETHAZINE 25 MG RECT SUPP PR PRN (16:32)
[2022-01-12] MEDS: IBUPROFEN 800 MG TAB PO SCH ×2 (17:28→23:11)
[2022-01-12] MEDS ORDERED: BENZOCAINE/MENTHOL 20/0.5% TOP SPRAY 56 GM TP PRN (18:39)
[2022-01-12 18:56] LABS: Hematocrit 39.4 % (30.3-42.9); Hemoglobin 13.1 gm/dl (10.1-14.3); Mean Corpuscular HGB Conc 33 % (30-34); Mean Corpuscular Volume 93 fl (79-97); Platelet Count 304 K/mm3 (140-440); Red Blood Count 4.24 M/mm3 (3.65-5.03); Red Cell Distribution Width 14.2 % (13.2-15.2)
[2022-01-13 05:03] LABS: Hematocrit 37.1 % (30.3-42.9); Hemoglobin 11.8 gm/dl (10.1-14.3)
[2022-01-13] MEDS: IBUPROFEN 800 MG TAB PO SCH ×3 (05:34→19:36)
--- NOTE | 2022-01-13 08:47 | Progress Note ---
Assessment and Plan - Patient Problems (1) Active labor at term Current Visit: Yes Status: Acute Plan to address problem: Patient doing well Discharge home Subjective - Subjective Date of service: 01/13/22 Interval history: The patient is currently without complaints. She reports that her lochia is decreasing and her pain has been well controlled. Patient reports: appetite normal, voiding normally, pain well controlled [place]: doing well Objective - Vital Signs Latest vital signs: Vital Signs Temp Pulse Resp BP BP Pulse Ox Pulse Ox 01/13/22 07:45 98.3 F 95 H 20 115/63 98 01/13/22 05:35 98 01/13/22 04:50 98.5 F 97 H 20 100/54 96 01/13/22 04:15 98 01/13/22 01:25 98 01/13/22 00:11 98.2 F 96 H 20 113/63 99 01/12/22 23:10 98 01/12/22 22:10 98 01/12/22 20:30 98 01/12/22 20:12 98.3 F 98 H 20 128/73 99 01/12/22 17:45 98.4 F 81 20 112/67 100 100 01/12/22 17:02 85 98 01/12/22 16:57 90 99 01/12/22 16:52 93 H 99 01/12/22 16:47 97 H 98 01/12/22 16:42 102 H 98 01/12/22 16:38 100 H 93 01/12/22 16:37 91 H 97 01/12/22 16:32 88 81 L 01/12/22 16:26 97 H 97 01/12/22 16:25 99 H 93 01/12/22 16:21 106 H 93 01/12/22 16:18 105 H 93 01/12/22 16:16 106 H 96 01/12/22 16:11 98 H 97 01/12/22 16:07 88 94 01/12/22 16:06 102 H 98 01/12/22 16:01 90 98 01/12/22 15:56 89 99 01/12/22 15:51 86 97 01/12/22 15:49 98 H 94 01/12/22 15:45 95 H 98 01/12/22 15:40 92 H 98 01/12/22 15:35 96 H 98 01/12/22 15:29 74 100 01/12/22 15:24 88 99 01/12/22 15:19 98 H 99 01/12/22 15:14 96 H 100 01/12/22 15:09 90 99 01/12/22 15:04 91 H 100 01/12/22 14:59 96 H 94 01/12/22 14:54 104 H 99 01/12/22 14:49 92 H 100 01/12/22 14:44 91 H 100 01/12/22 14:40 100 H 90 01/12/22 14:39 96 H 93 01/12/22 14:34 90 100 01/12/22 14:31 101 H 94 01/12/22 14:29 93 H 95 01/12/22 14:24 95 H 100 01/12/22 14:19 97 H 96 01/12/22 14:15 97.9 F 01/12/22 14:14 104 H 100 01/12/22 14:09 98 H 100 01/12/22 14:04 96 H 100 01/12/22 13:59 114 H 97 01/12/22 13:56 95 H 114/68 01/12/22 13:48 89 97 01/12/22 13:43 115 H 97 01/12/22 13:42 100 H 122/63 Intake and Output 01/12/22 01/13/22 01/13/22 22:59 06:59 14:59 Intake Total 360 240 Output Total 1100 500 Balance -740 -260 Intake: Oral 360 240 Output: Urine 1100 500 Void 1100 500 Other: Total, Intake Amount 240 120 Total, Output Amount 400 500 # Voids Void 1 1 Estimated Blood Loss 200 - Exam Abdomen: Present: normal appearance, soft - Labs Labs: Abnormal lab results 01/12/22 01/12/22 Range/Units 14:20 17:53 WBC 12.6 H 20.5 H (4.5-11.0) K/mm3
--- NOTE | 2022-01-13 08:49 | Discharge Summary ---
Providers - Providers Date of Admission: 01/12/22 14:42 Date of discharge: 01/13/22 Attending physician: MILTON MOMIN Primary care physician: MILTON MOMIN Hospitalization Reason for admission: active labor Delivery: Discharge diagnosis: IUP at term delivered [place] baby: female Hospital course: The patient was admitted in active labor and had a successful vaginal delivery. course was uneventful. Condition at discharge: Good Disposition: 01 HOME / SELF CARE / HOMELESS - Discharge Diagnoses (1) Active labor at term Status: Acute Plan - Discharge Medications Prescriptions: Ibuprofen [Motrin] 800 mg PO Q8HR PRN #30 tablet PRN Reason: Pain , Severe (7-10) HYDROcodone/APAP 5-325 [[place] 5/325] 1 each PO Q6HR PRN #15 tablet PRN Reason: Pain - Provider Discharge Summary Activity: no sex for 6 weeks, no heavy lifting 4 weeks, no strenuous exercise Diet: routine Instructions: routine Additional instructions: [] Smoking cessation referral if applicable(refer to patient education folder for contact #) [] Refer to [facility] Booklet Call your doctor immediately for: * Fever > 100.5 * Heavy vaginal bleeding ( >1 pad per hour) * Severe persistent headache * Shortness of breath * Reddened, hot, painful area to leg or breast * Schedule visit in 4 weeks - Follow up plan
[2022-01-13 16:45] VITALS: BP 106/65
== END 2022-01-13 20:24 | disposition home or self-care (01) | DRG 807 ==
LOC: TRG 13:27 → APU 13:29 → LD 14:09 → TRG 15:22 → OB 17:36
PROVIDERS: ADMIT Obstetrics & Gynecology; ATTEND Obstetrics & Gynecology
PROC: 10E0XZZ Delivery of Products of Conception, External Approach (ICD-10-PCS; principal; 2022-01-12)
PROC: 0KQM0ZZ Repair Perineum Muscle, Open Approach (ICD-10-PCS; 2022-01-12)
DX: O77.0 Labor and delivery complicated by meconium in amniotic fluid (principal); Z37.0 Single live birth; Z20.822 Contact with and (suspected) exposure to COVID-19; Z3A.40 40 weeks gestation of pregnancy; O70.1 Second degree perineal laceration during delivery
CPT/HCPCS: 36415; 85014; 85018; 85027; 86850; 86900; 86901; G0378; J2590; U0003